=== PATIENT | female | born 1965 | race Caucasian/White ===

== ENCOUNTER → 2024-06-05 08:34 | Outpatient (REF) | payer BC, SELFPAY | LOC: RAD 08:34 | PROVIDERS: ATTENDING PHYSICIAN Physician Assistant Medical | DX: N95.0 Postmenopausal bleeding (principal) | CPT/HCPCS: 76830 ==

== ENCOUNTER 2024-08-05 06:02 | Day surgery (SDC) | payer BC, SELFPAY ==
--- NOTE | 2024-08-02 10:24 | W.CON.GYNONC ---
Chief Complaint
-
endometrial cancer
History of Present Illness
59�year�old G0 woman referred to me by Dr. Jyoti Allen. Patient has not seen a yarn twister for almost 2 to 3 years. She
receives her gynecologic care through her primary care provider, Kyra Gannon. patient has had some vaginal bleeding that
occurred once in March and minimal since then. Ultrasound of pelvis was done at [facility] June 05, 2024, uterus
was 11 x 6.5 x 6.2 cm, multiple fibroids were present measuring 3.2, 4.9 that do not seem significantly changed compared to prior
study. Endometrial thickness was 5 mm. Both ovaries were unremarkable. Patient had a Pap smear April 17, 2025 which was
negative for malignancy and high risk HPV was also negative. Patient apparently had a cervical polyp which was biopsied, polyp
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 Moderately differentiated. Neoplastic cells
were positive for vimentin negative for CEA. P53 expression was wild�type.
Past medical history significant for hypertension, hypothyroidism, depression anxiety and obesity
Past surgical history significant for for none
Medications include levothyroxine, Prozac, lisinopril
Social history denies tobacco drug or marijuana use, drinks alcohol socially, patient is not , she works at [employer]
as a automotive service cashier
Family history significant for only maternal grandmother with lung cancer
Screening studies include mammogram up�to�date, she is supposed to schedule a colonoscopy which she is never done
Medical History
Allergies
Allergies reflect when allergies were last updated in [facility].
No Known Allergies Allergy (Verified 07/29/24 13:37)
Physical Exam
Physical Exam
Pelvic Examination:
External normal labia, urethra, anus.
Vagina: Normal mucosa.
Cervix: Speculum examination was performed, it is very difficult to see or palpate the cervix but eventually I was able to see it with
Graves speculum, there is no gross lesion present cervical os is open
Uterus: normal size. I am unable to appreciate the fundus due to patient's body habitus
Adnexa: No pelvic mass. Unable to appreciate ovary
RVE: no masses or nodularity
General: Well developed, well nourished patient. In no acute distress.
Neck: No thyromegaly. No cervical lymphadenopathy.
Lungs: Clear to auscultation. Good air movement bilaterally.
Cardiac: Regular rate. Regular rhythm. No murmurs appreciated.
Right Breast: No masses or dimpling. No nipple discharge.
Left Breast: No masses or dimpling. No nipple discharge.
Abdomen: Abdomen is soft. Non�tender to palpation. Non�distended.
Extremities: No edema.
Hematologic/Lymphatic: No palpable lymphadenopathy.
Musculoskeletal: Normal range of motion. Strength and Tone are normal.
Skin:Non�jaundiced. No petechia. No purpura.
Neurologic: Speech is fluent. Normal gait and station. Cranial nerves intact.
Results
-
[facility]
[address] [place] [address]
[phone]
Patient Name: SIMBA KENNEDY
: 1965
Unit Number: [id number]
Age/Sex: 58/F
Patient
Location: [facility]
Order Provider: Kyra Panda
Exam Service Date: 06/05/24

Diagnostic Imaging Report
SignedOrder #:[id number]
Exams: US Pelvis Transvaginal Only
PROCEDURE: US Pelvis Transvaginal Only
INDICATION: 58-year-old with fibroids.
TECHNIQUE: Transvaginal pelvic ultrasound was performed. [employer] henriquez scale and color Doppler images saved and recorded.
COMPARISON: Pelvic ultrasound from 10/23/2017
FINDINGS:
Uterus: Size measures 11.0 x 6.5 x 6.2 cm. Again seen are couple of anterior body intramural fibroids measuring 3.2 x 3.3 x 3.2 cm and 4.9 x 6.1 x 5.2 cm. Both do not appear significantly changed compared to the prior study.
Endometrium: Thickness measures 5 mm. No endometrial fluid, soft tissue lesions, or abnormal vascularity.
Ovaries: Both ovaries are unremarkable. Right ovary measures 3.5 x 2.1 x 3.9 cm. Left ovary measures 3.0 x 1.6 x 3.0 cm.
No pelvic free fluid.
IMPRESSION:
Redemonstration of fibroid uterus containing a couple of anterior body intramural fibroids, both of which are not significantly changed compared to the pelvic ultrasound from 2018.
Endometrial thickness measures 5 mm.
Both ovaries are unremarkable. No adnexal masses or pelvic free fluid.
Electronically signed by Richi Mohamud MD, 06/05/2024 11:26 AM
Comp. Metabolic Panel (14)�-FinalOrdered by:�Sonia VENCES
Glucose 89 mg/dL 70-99 [facility]
BUN 23 mg/dL 8-27 [facility]
Creat 0.89 mg/dL 0.57-1.00 [facility]
eGFR 74 mL/min/1.73 >59 [facility]
BUN Creat Ratio 26 12-28 [facility]
Sodium 139 mmol/L 134-144 [facility]
Potassium 4.8 mmol/L 3.5-5.2 [facility]
Chloride 102 mmol/L 96-106 [facility]
CO2 20 mmol/L 20-29 [facility]
Calcium 10.1 mg/dL 8.7-10.3 [facility]
Total Protein 6.8 g/dL 6.0-8.5 [facility]
Albumin 4.6 g/dL 3.8-4.9 [facility]
Globulin 2.2 g/dL 1.5-4.5 [facility]
Total Bili 0.7 mg/dL 0.0-1.2 [facility]
Alk Phos 90 IU/L 44-121 [facility]
AST 19 IU/L 0-40 [facility]
ALT 20 IU/L 0-32 [facility]
Urinalysis, Complete�-FinalOrdered by:�Sonia VENCES
Sp Pepin 1.020 1.005-1.030 [facility]
ph 5.5 5.0-7.5 [facility]
Color Yellow Yellow [facility]
Appearance Clear Clear [facility]
WBC Esterase Negative Negative [facility]
Protein [Presence] Negative Negative/Trace [facility]
Glucose (urine) Negative Negative [facility]
Ketone Negative Negative [facility]
Blood Negative Negative [facility]
Bilirubin (UA) Negative Negative [facility]
Urobil 0.2Low mg/dL 0.2-1.0 [facility]
Nitrite Negative Negative [facility]
Microscopic Examination MICRON [facility]
Microscopic�follows�if�indicated.
Microscopic Examination See below: [facility]
Microscopic�was�indicated�and�was�performed.
Microscopic Examination�-FinalOrdered by:�Sonia VENCES
WBC (Urine) HPF 0-5 /hpf 0 - 5 [facility]
RBC (Urine) HPF None seen /hpf 0 - 2 [facility]
Epithelial Cells (non renal) 0-10 /hpf 0 - 10 [facility]
Casts None seen /lpf None seen [facility]
Bacteria None seen None seen/Few [facility]
Iron and TIBC�-FinalOrdered by:�Sonia VENCES
Iron Bind.Cap.(TIBC) 361 ug/dL 250-450 [facility]
UIBC 270 ug/dL 131-425 [facility]
IRON 91 ug/dL 27-159 [facility]
Iron Sat Percent 25 % 15-55 [facility]
Vitamin B12 and Folate�-FinalOrdered by:�Sonia VENCES
B12 508 pg/mL 232-1245 [facility]
Folate (Folic Acid), Serum 8.4 ng/mL >3.0 [facility]
A�serum�folate�concentration�of�less�than�3.1�ng/mL�is
considered�to�represent�clinical�deficiency.
Prothrombin Time (PT)�-FinalOrdered by:�Sonia VENCES
INR 1.0 0.9-1.2 [facility]
���������������Reference�interval�is�for�non-anticoagulated�patients.
��������������������������������������������������������������������.
���������������Suggested�INR�therapeutic�range�for�Vitamin�K
���������������antagonist�therapy:
������������������Standard�Dose�(moderate�intensity
���������������������������������therapeutic�range):�������2.0�-�3.0
������������������Higher�intensity�therapeutic�range�������2.5�-�3.5
ProTime 10.9 sec 9.1-12.0 [facility]
TSH reflex to T4F�-FinalOrdered by:�Sonia VENCES
TSH 2.810 uIU/mL 0.450-4.500 [facility]
Cancer Antigen (CA) 125�-FinalOrdered by:�Sonia VENCES
CA125 13.2 U/mL 0.0-38.1 [facility]�Electrochemiluminescence�Immunoassay�(ECLIA)
���������������������������������������������������������������������.
Values�obtained�with�different�assay�methods�or�kits�cannot�be
used�interchangeably.��Results�cannot�be�interpreted�as�absolute
evidence�of�the�presence�or�absence�of�malignant�disease.
PTT, Activated�-FinalOrdered by:�Sonia VENCES
aPTT 28 sec 24-33 [facility]
This�test�has�not�been�validated�for�monitoring�unfractionated�heparin
therapy.�aPTT-based�therapeutic�ranges�for�unfractionated�heparin
therapy�have�not�been�established.�For�general�guidelines�on
Heparin�monitoring,�refer�to�the�[facility]�Directory�of�Services.
FSH�-FinalOrdered by:�Sonia VENCES
FSH 55.4 mIU/mL 25.8-134.8 [facility]
������������������������������������Adult�Female�������������Range
�������������������������������������Follicular�phase������3.5�-��12.5
�������������������������������������Ovulation�phase�������4.7�-��21.5
�������������������������������������Luteal�phase����������1.7�-���7.7
�������������������������������������Postmenopausal�������25.8�-�134.8
LDH�-FinalOrdered by:�Sonia VENCES
LDH 195 IU/L 119-226 [facility]
Urine Culture, Routine�-FinalOrdered by:�Sonia VENCES
Urine Culture, Routine Final report [facility]
Result�-FinalOrdered by:�Sonia VENCES
Result 1 LESS [facility]
Culture�shows�less�than�10,000�colony�forming�units�of�bacteria�per
milliliter�of�urine.�This�colony�count�is�not�generally�considered
to�be�clinically�significant.
Ferritin�-FinalOrdered by:�Sonia VENCES
Ferritin 143 ng/mL 15-150 [facility]
Performing Location:�01�=�[address]�[id number]��Phone:�[phone]
�������Dir:�JORDAN French,��
Impression / Plan
-
59�year�old morbidly obese woman who is presenting with postmenopausal bleeding as well as a endocervical polyp that is grade 2
endometrioid adenocarcinoma.
I informed the patient and her brother and sister�in�law about cervix and endometrial cancer, she has typical risk factor for
endometrial cancer and has a negative Pap smear although the Pap smear fails to contain endocervical cells. Presentation with a
endocervical polyp for endometrial cancer is somewhat unusual, her endometrial lining is not particularly thickened on the recent
ultrasound and the possibility of an endometrioid adenocarcinoma of the cervix needs to be excluded.
I am recommending initially an exam under anesthesia with dilation and curettage performed in a fractional fashion so that we could
have ECC and EMC for evaluation.
Labs including CMP CBC coagulation studies TSH FSH will be done.
Baseline CT chest abdomen and pelvis will be done to assess for metastatic disease
This patient has risk factors including obesity menopausal status, heavy menstrual cycles during her 49, and hypertension for
development of endometrial cancer and I explained this to the patient extensively. I discussed with her that she needs to examine
and evaluate her lifestyle choices and hopefully make an attempt at long�term weight loss as she may be at significant risk for other
diseases such as breast cancer cardiovascular disease and stroke.
[2024-08-05 06:19] VITALS: BMI 54.9
[2024-08-05 06:21] VITALS: BMI 54.9
[2024-08-05 06:25] VITALS: BP 134/79
[2024-08-05] MEDS: TYLENOL 1000 MG PO (06:31)
[2024-08-05] MEDS: CELEBREX 200 MG PO (06:31)
[2024-08-05] MEDS: HEPARIN 5000 UNITS SC (06:32)
[2024-08-05] MEDS: NEURONTIN 300 MG PO (06:32)
[2024-08-05] MEDS: NORMOSOL-R/PLASMALYTE-A 1000 IV (06:47)
[2024-08-05 07:55] VITALS: BP 134/79
[2024-08-05 07:57] VITALS: BP 127/68
[2024-08-05 08:00] VITALS: BP 124/66
--- NOTE | 2024-08-05 08:07 | OR.RPT ---
Operative Report
Operative Report
Date of procedure: 08/05/2024
Primary Surgeon: Carroll Soto MD
Pre-op Diagnosis: Postmenopausal bleeding, history of cervix polyp removed indicating adenocarcinoma
Post-op Diagnosis: Same pending final pathology
Procedure Performed: Exam under anesthesia, fractional dilation and curettage
Anesthesia Type: General, LMA intubation
Specimen / Cultures: ECC, EMC
Estimated Blood Loss: Less than 10 cc
Complications: None
Operative Findings: Exam under anesthesia reveals external genitalia including anus urethra and vulva and vagina to be within normal limits. She is morbidly obese with the cervix high up in the pelvis, the cervix grossly is without any evidence of
abnormalities. To the best of my ability examination reveals a 10-week size uterus, bilateral parametria are normal and I am unable to appreciate any pelvic masses
Procedure in detail: This patient was brought to the operating room placed in supine position, general anesthesia was administered and she was intubated with LMA. She was placed in lithotomy position using yellowfin stirrups, we prepped and draped
after timeout procedure was completed specifically in perineum upper thighs and lower abdomen. She received appropriate antibiotics with 3 g of Ancef. I used Nye retractors to visualize the cervix, anterior lip of the cervix was grasped with
single-tooth tenaculum. 10 cc 1% lidocaine was injected divided equally at 5 and 7:00 paracervical location. I dilated the cervix and note that the uterus sounded to 10 cm. Sharp curettage of the endocervix was obtained and submitted as ECC the
cervix was dilated up to 25 Montserratian dilator, sharp curettage of the endometrial cavity was also obtained and minimal amount of tissue was obtained. This is consistent with her ultrasound findings. The endometrium was only 5 mm. At the completion
of the procedure I removed all instruments, there was no bleeding. She was awakened and extubated and returned back to recovery room stable awake and extubated condition. Counts of laps instruments and needle was correct x 2. I was present and
scrubbed for entire procedure as dictated above
Disposition: To PACU stable awake and extubated.
[2024-08-05 08:15] VITALS: BP 119/66
[2024-08-05 08:45] VITALS: BP 136/79
== END 2024-08-05 09:05 | disposition home or self-care (01) ==
LOC: SDS 06:02
PROVIDERS: ATTENDING PHYSICIAN Obstetrics & Gynecology Gynecologic Oncology; FAMILY PHYSICIAN Physician Assistant Medical
DX: N87.9 Dysplasia of cervix uteri, unspecified (principal); N95.0 Postmenopausal bleeding
CPT/HCPCS: 58120; 88305; 36415; 86850; 86900; 86901; 93005

== ENCOUNTER → 2024-08-18 07:32 | Outpatient (REF) | payer BC, SELFPAY | LOC: RAD 07:32 | PROVIDERS: ATTENDING PHYSICIAN Obstetrics & Gynecology Gynecologic Oncology; FAMILY PHYSICIAN Physician Assistant Medical | DX: C54.1 Malignant neoplasm of endometrium (principal); E66.01 Morbid (severe) obesity due to excess calories; I10 Essential (primary) hypertension | CPT/HCPCS: 71260; 74177; Q9967 ==

== ENCOUNTER 2024-08-26 06:08 | Day surgery (SDC) | payer BC, SELFPAY ==
--- NOTE | 2024-08-25 16:40 | W.CON.GYNONC ---
Addendum entered and electronically signed by Carroll Soto MD 08/26/24 09:51:
Date for this consultation is August 26, 2024 and this document serves as the preoperative H&P.
Original Note:
Chief Complaint
-
Uterine Ca
History of Present Illness
59�year�old�G0�woman�referred�to�me�by�Dr.�Jyoti�Alejandro.�Patient�has�not�seen�a�railroad car repairman�for�almost�2�to�3�years.�She receives�her�gynecologic�care�through�her�primary�care�provider,�Kyra�[facility].�patient�has�had�some�vaginal�bleeding�that
occurred�once�in�[place]�and�minimal�since�then.�Ultrasound�of�pelvis�was�done�at[facility]�March�2,�uterus
was�11�x�6.5�x�6.2�cm,�multiple�fibroids�were�present�measuring�3.2,�4.9�that�do�not�seem�significantly�changed�compared�to�prior
study.�Endometrial�thickness�was�5�mm.�Both�ovaries�were�unremarkable.�Patient�had�a�Pap�smear�February��which�was negative�for�malignancy�and�high�risk�HPV�was�also�negative.�Patient�apparently�had�a�cervical�polyp�which�was�biopsied,�polyp
showed�extensive�involvement�by�adenocarcinoma�consistent�with�endometrial�origin.�Moderately�differentiated.�
Neoplastic�cells were�positive�for�vimentin�negative�for�CEA.�P53�expression�was�wild�type.�
She underwent D&C, by which showed
A. Endocervical curettings �
? Focal endocervical squamous metaplasia.
B. Endometrial curettings �
? Inactive endometrium with focal tubal metaplasia.
? No tumor identified
Cervix polyp was re reviewed here at and consulted with kenan, indicating
Endometrioid adenocarcinoma with squamous differentiation and area suggestive of
potential sarcomatous differentiation, see note.
Note:
Histologic grading of this carcinoma is difficult given its variable morphology. Grading is best
deferred to a resection specimen.
Immunohistochemical stains demonstrate that the tumor cells are positive for vimentin and
negative for p63 and CEA-M. P16 show patchy positivity, and p53 shows a wild-type staining
pattern.
Past�medical�history�significant�for�hypertension,�hypothyroidism,�depression�anxiety�and�obesity
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
Family�history�significant�for�only�maternal�grandmother�with�lung�cancer
Screening�studies�include�mammogram�up�to�date,�she�is�supposed�to�schedule�a�colonoscopy�which�she�is�never�done
Medical History
Allergies
Allergies reflect when allergies were last updated in [employer].
No Known Allergies Allergy (Verified 08/20/24 16:19)
Physical Exam
Physical Exam
Pelvic�Examination: External�normal�labia,�urethra,�anus.� Vagina:�Normal�mucosa.� Cervix:�Speculum�examination�was�performed,�it�is�very�difficult�to�see�or�palpate�the�cervix�but�eventually�I�was�able�to�see�it�with
Graves�speculum,�there�is�no�gross�lesion�present�cervical�os�is�open Uterus:�normal�size.�I�am�unable�to�appreciate�the�fundus�due�to�patient's�body�habitus Adnexa:�No�pelvic�mass.�Unable�to�appreciate�ovary RVE:�no�masses�or�nodularity
General:�Well�developed,�well�nourished�patient.�In�no�acute�distress. Neck:�No�thyromegaly.�No�cervical�lymphadenopathy. Lungs:�Clear�to�auscultation.�Good�air�movement�bilaterally. Cardiac:�Regular�rate.�Regular�rhythm.�No�murmurs�appreciated.
Right�Breast:�No�masses�or�dimpling.�No�nipple�discharge. Left�Breast:�No�masses�or�dimpling.�No�nipple�discharge. Abdomen:�Abdomen�is�soft.�Non�tender�to�palpation.�Non�distended. Extremities:�No�edema.
Hematologic/Lymphatic:�No�palpable�lymphadenopathy. Musculoskeletal:�Normal�range�of�motion.�Strength�and�Tone�are�normal. Skin:Non�jaundiced.�No�petechia.�No�purpura. Neurologic:�Speech�is�fluent.�Normal�gait�and�station.�Cranial�nerves�intact.
Results
-
Comp. Metabolic Panel (14)�-FinalOrdered by:�Sonia SOTO
Glucose 89 mg/dL 70-99 [facility]
BUN 23 mg/dL 8-27 [facility]
Creat 0.89 mg/dL 0.57-1.00 [facility]
eGFR 74 mL/min/1.73 >59 [facility]
BUN Creat Ratio 26 12-28 [facility]
Sodium 139 mmol/L 134-144 [facility]
Potassium 4.8 mmol/L 3.5-5.2 [facility]
Chloride 102 mmol/L 96-106 [facility]
CO2 20 mmol/L 20-29 [facility]
Calcium 10.1 mg/dL 8.7-10.3 [facility]
Total Protein 6.8 g/dL 6.0-8.5 [facility]
Albumin 4.6 g/dL 3.8-4.9 [facility]
Globulin 2.2 g/dL 1.5-4.5 [facility]
Total Bili 0.7 mg/dL 0.0-1.2 [facility]
Alk Phos 90 IU/L 44-121 [facility]
AST 19 IU/L 0-40 [facility]
ALT 20 IU/L 0-32 [facility]
Urinalysis, Complete�-FinalOrdered by:�Sonia SOTO
Sp Novelty 1.020 1.005-1.030 [facility]
ph 5.5 5.0-7.5 [facility]
Color Yellow Yellow [facility]
Appearance Clear Clear [facility]
WBC Esterase Negative Negative [facility]
Protein [Presence] Negative Negative/Trace [facility]
Glucose (urine) Negative Negative [facility]
Ketone Negative Negative [facility]
Blood Negative Negative [facility]
Bilirubin (UA) Negative Negative [facility]
Urobil 0.2Low mg/dL 0.2-1.0 [facility]
Nitrite Negative Negative [facility]
Microscopic Examination MICRON [facility]
Microscopic�follows�if�indicated.
Microscopic Examination See below: [facility]
Microscopic�was�indicated�and�was�performed.
Microscopic Examination�-FinalOrdered by:�Sonia SOTO
WBC (Urine) HPF 0-5 /hpf 0 - 5 [facility]
RBC (Urine) HPF None seen /hpf 0 - 2 [facility]
Epithelial Cells (non renal) 0-10 /hpf 0 - 10 [facility]
Casts None seen /lpf None seen [facility]
Bacteria None seen None seen/Few [facility]
Iron and TIBC�-FinalOrdered by:�Sonia SOTO
Iron Bind.Cap.(TIBC) 361 ug/dL 250-450 [facility]
UIBC 270 ug/dL 131-425 [facility]
IRON 91 ug/dL 27-159 [facility]
Iron Sat Percent 25 % 15-55 [facility]
Vitamin B12 and Folate�-FinalOrdered by:�Sonia SOTO
B12 508 pg/mL 232-1245 [facility]
Folate (Folic Acid), Serum 8.4 ng/mL >3.0 [facility]
A�serum�folate�concentration�of�less�than�3.1�ng/mL�is
considered�to�represent�clinical�deficiency.
Prothrombin Time (PT)�-FinalOrdered by:�Sonia SOTO
INR 1.0 0.9-1.2 [facility]
���������������Reference�interval�is�for�non-anticoagulated�patients.
��������������������������������������������������������������������.
���������������Suggested�INR�therapeutic�range�for�Vitamin�K
���������������antagonist�therapy:
������������������Standard�Dose�(moderate�intensity
���������������������������������therapeutic�range):�������2.0�-�3.0
������������������Higher�intensity�therapeutic�range�������2.5�-�3.5
ProTime 10.9 sec 9.1-12.0 [facility]
TSH reflex to T4F�-FinalOrdered by:�Sonia SOTO
TSH 2.810 uIU/mL 0.450-4.500 [facility]
Cancer Antigen (CA) 125�-FinalOrdered by:�Sonia SOTO
CA125 13.2 U/mL 0.0-38.1 [facility]�Electrochemiluminescence�Immunoassay�(ECLIA)
���������������������������������������������������������������������.
Values�obtained�with�different�assay�methods�or�kits�cannot�be
used�interchangeably.��Results�cannot�be�interpreted�as�absolute
evidence�of�the�presence�or�absence�of�malignant�disease.
PTT, Activated�-FinalOrdered by:�Sonia SOTO
aPTT 28 sec 24-33 [facility]
This�test�has�not�been�validated�for�monitoring�unfractionated�heparin
therapy.�aPTT-based�therapeutic�ranges�for�unfractionated�heparin
therapy�have�not�been�established.�For�general�guidelines�on
Heparin�monitoring,�refer�to�the�[facility]�Directory�of�Services.
FSH�-FinalOrdered by:�Sonia SOTO
FSH 55.4 mIU/mL 25.8-134.8 [facility]
������������������������������������Adult�Female�������������Range
�������������������������������������Follicular�phase������3.5�-��12.5
�������������������������������������Ovulation�phase�������4.7�-��21.5
�������������������������������������Luteal�phase����������1.7�-���7.7
�������������������������������������Postmenopausal�������25.8�-�134.8
LDH�-FinalOrdered by:�Sonia SOTO
LDH 195 IU/L 119-226 [facility]
Urine Culture, Routine�-FinalOrdered by:�Sonia SOTO
Urine Culture, Routine Final report [facility]
Result�-FinalOrdered by:�Sonia SOTO
Result 1 LESS [facility]
Culture�shows�less�than�10,000�colony�forming�units�of�bacteria�per
milliliter�of�urine.�This�colony�count�is�not�generally�considered
to�be�clinically�significant.
Ferritin�-FinalOrdered by:�Sonia SOTO
Ferritin 143 ng/mL 15-150 [facility]
[address] [place] [address]
[phone]
Patient Name: SIMBA KENNEDY
: 1965
Unit Number: [id number]
Age/Sex: 59/F
Patient
Location: [facility]
Order Provider: Carroll Soto MD
Exam Service Date: 08/18/24

Diagnostic Imaging Report
SignedOrder #:[id number]
Exams: CT Chest/abd/pel W Iv Cont
Contrast-enhanced CT of the chest, abdomen, and pelvis dated 08/18/2024 7:45 AM.
Indication: Malignant neoplasm of endometrium.
Comparison: Pelvic ultrasound 06/05/2024
Technique: After the injection of intravenous nonionic iodinated contrast, axial CT of the chest, abdomen, and pelvis was performed from the lung apices to the inferior osseous pelvis. 2-D reformats were obtained. Automatic exposure control
radiation dose reduction technology was utilized.
Findings:
Chest: The central airways are patent. There are no suspicious pulmonary nodules. No areas of airspace disease. There is trace atelectasis within the medial left lower lobe. No pleural effusion or pneumothorax.
No mediastinal, hilar or axillary lymphadenopathy.
The heart is nonenlarged. No evidence of thoracic aortic aneurysm.
No suspicious osseous lesions. Mild degenerative changes of the thoracic spine.
Abdomen/pelvis:
LIVER: Within normal limits.
GALLBLADDER: Within normal limits.
BILE DUCTS: Within normal limits.
PANCREAS: Within normal limits.
SPLEEN: Within normal limits.
ADRENALS: No discrete nodule.
KIDNEYS/URETERS: No hydronephrosis. No suspicious renal lesion.
BOWEL: No obstruction or wall thickening. Colonic diverticulosis.
PERITONEUM: No ascites or free air.
REPRODUCTIVE: Globular appearance of the uterus.
BLADDER: Nondistended. VESSELS: Non-aneurysmal abdominal aorta. There is mild atherosclerotic calcifications of the abdominal aorta.
RETROPERITONEUM: No retroperitoneal or pelvic lymphadenopathy.
No suspicious osseous lesions. Degenerative changes of the lumbar spine with moderate intervertebral disc space narrowing of L3-L4, L4-L5 and L5-S1.
Small fat-containing umbilical hernia. Right inguinal nodes measuring up to 1.1 cm (series 301 image 93)
IMPRESSION:
1. No evidence of metastatic disease identified in the chest, abdomen or pelvis.
2. Lobular appearance of the uterus which is likely in part secondary to uterine fibroids. The known endometrial carcinoma is not well evaluated.
3. Chronic diverticulosis.
Electronically signed by Abdulkadir Aguirre MD, 08/18/2024 4:53 PM
[employer] Dose Report: Up-to-date CT equipment and radiation dose reduction techniques were employed. CTDIvol: 16.3 - 31.6 mGy. DLP: 2013 mGy-cm.
Dictated By: Abdulkadir Aguirre MD.
Dictated Date & Time: 08/18/24 1627
Signed/Co-Signer By: Abdulkadir Aguirre MD /
Signed/Co-Signer Date & Time: 08/18/24 1653 /
Impression / Plan
-
59�year�old�morbidly�obese�woman�who�is�presenting�with�postmenopausal�bleeding�as�well�as�a�endocervical�polyp�that�is�grade�2 endometrioid�adenocarcinoma.
�surgery�will�be�robotic�assisted�total�laparoscopic hysterectomy,�bilateral�salpingo�oophorectomy,�staging�including�sentinel�lymph�nodes�with�the�possible�need�for�mini�laparotomy for�extraction�of�specimen.�
Risk�of�surgery�including�infection�bleeding�injury�to�adjacent�organs�DVT�pulmonary�embolism�and cardiovascular�complications�were�discussed�and�reviewed.�
Patient�understands�that�following�surgery�she�will�be�visiting�with�me�to�go�over�pathology�report�and�assess�risk�factors�for
systemic�and�local�recurrence�and�may�be�advised�to�undergo�adjuvant�treatment�including�observation,�surveillance,�radiation therapy�chemotherapy�etc.
[2024-08-26] VITALS (14 sets, daily range): BP systolic 109–146; BP diastolic 51–77; BMI 54.9
[2024-08-26] MEDS: CELEBREX 200 MG PO (06:38)
[2024-08-26] MEDS: HEPARIN 5000 UNITS SC (06:38)
[2024-08-26] MEDS: NEURONTIN 300 MG PO (06:38)
[2024-08-26] MEDS: TYLENOL 1000 MG PO (06:38)
[2024-08-26] MEDS: NORMOSOL-R/PLASMALYTE-A 1000 IV (06:51)
[2024-08-26 07:16] LABS: Hematocrit 42.8 % (37.0-47.0); Hemoglobin 14.5 g/dL (12.0-16.0); Mean Corp Hgb Conc. 33.9 g/dL (33.0-37.0); Mean Corpuscular Volume 88.4 fL (81.0-99.0); Mean Platelet Volume 10.8 fL (7.4-10.4); Platelet Count 246 10^3/uL (130-400); Red Blood Cell Count 4.84 10^6/uL (4.20-5.40); Red Cell Dist. Width 12.6 % (11.5-14.5); White Blood Cell Count 7.2 10^3/uL (4.8-10.8)
--- NOTE | 2024-08-26 09:41 | OR.RPT ---
Operative Report
Operative Report
Date of procedure: August 26, 2024
Primary Surgeon: Carroll Soto MD
Assisting Surgeon: Miguelina Degroot PA-C, Mg DEVI
Pre-op Diagnosis: Endometrial cancer
Post-op Diagnosis: Same
Procedure Performed:
Robotic assisted total laparoscopic hysterectomy bilateral salpingo-oophorectomy with pelvic washings 99925
Injection of cervix, bilateral, for mapping and identification of bilateral sentinel lymph nodes 3890 0�5 0
Robotic assisted bilateral pelvic sentinel lymphadenectomy [id number]
Mini laparotomy for extraction of specimen
Anesthesia Type: General Endotracheal intubation, transversus abdominis plane block
Specimen / Cultures: Uterus and cervix with bilateral tubes and ovaries, pelvic washings, right and left external iliac sentinel lymph nodes
Estimated Blood Loss: 50 cc
Complications: None
Operative Findings: Intra-abdominal survey reveals excessive amount of adipose tissue hanging from various surfaces abdominal wall. Upper abdomen including liver stomach bilateral diaphragms are normal. Visualized portions of small bowel and colon
are normal. Uterus is enlarged, bilateral tubes and ovaries are round normal in appearance, there is no peritoneal implants or ascites
Procedure in detail: This patient was taken to the operating room for definitive management of endometrial cancer. Please note that she had initially presented with postmenopausal bleeding endocervical polyp was removed which revealed grade 2
endometrioid adenocarcinoma. Subsequently the patient underwent a D&C which did not reveal any evidence of residual invasive cancer in the cervix or endometrium. Prior Pap smear was high risk HPV negative. CT scan chest abdomen and pelvis did not
reveal any evidence of metastatic disease the patient is brought to the operating room for definitive management. Upon arrival to the operating room she was placed in supine position general anesthesia was administered she was intubated without any
difficulty she was placed in lithotomy position using bariatric yellowfin stirrups. Arms were wrapped with foam and placed along the patient's side to protect extremities. Neck and shoulders were supported. OG tube was placed and eyes were
covered. Timeout procedure was carried out she received 3 g of Ancef and 500 mg of Flagyl. Herrera catheter was placed under sterile conditions. Vagina perineum and upper abdomen was prepped and draped. Anterior lip of the cervix was grasped with
single-tooth tenaculum endocervical canal was dilated. The cervix was injected with ICG dye total of 4 cc split on right and left sides at 3 and 9:00 positions with ICG dye for mapping and identification of sentinel lymph nodes. Next I went ahead
and placed the uterine manipulator with a 3.0 cm ARABELLA ring around the cervix and insufflated vaginal occluder balloon. Attention was turned abdominally, Veress needle was then inserted just below left costal margin and CO2 gas was introduced with
pneumoperitoneum at 15 mmHg. 8 mm X Xi robotic ports were inserted 25 cm cephalad to symphysis pubis and under direct visualization right and left upper quadrant and right and left lateral abdomen ports were placed. Tap block was performed
injection combination of ropivacaine, Decadron 2 fingerbreadths below lateral aspect of the costal margins under direct visualization as well as right and left mid abdomen. Next I placed the patient in 28 degree Trendelenburg and docked the robotic
system. We went ahead and collected washings from the pelvis, right and left round ligaments were sealed and divided anterior and posterior leaves of the broad ligament were dissected open. Paravesical and pararectal spaces were developed and the
course of the ureters were identified. Both IP ligaments were sealed 3 times and divided tubes and ovaries were left attached to the uterus. Firefly mode was used to track lymphatic channel from the cervix and on the left side just below the
bifurcation of the common iliac vessels [place] lymph node was identified and removed and submitted to pathology, on the right side there is sentinel lymph node appeared to be anterior to the external iliac artery and this was excised and submitted
to pathology good hemostasis was obtained. Uterine arteries were skeletonized bilaterally, bladder flap was sharply developed and advanced below the cervicovaginal junction. Uterine arteries and veins were sealed and divided. Uterosacral
ligaments were sealed and divided circumferential incision was made over the ARABELLA ring until the specimen was completely detached. The size of the uterus was too large to be delivered through the vagina. The specimen was detached from the uterine
manipulator and was placed in an endoscopic bag. The vaginal cuff was closed with 0 Vicryl suture ligature in a [id number] fashion incorporating uterosacral ligaments at both apices. Next the vagina was closed with V-Loc suture starting from
right to the left and then back to the right side. We irrigated the pelvis and examined all pedicles that were hemostatic. Following this the patient was placed back in supine position and the robotic system was undocked. This supraumbilical
epigastric incision was extended vertically to about 5 cm in subcutaneous fat and fascia was opened. The specimen containing the uterus and cervix was removed through this incision and then we closed the incision with STRATAFIX 0 PDS symmetric
suture starting from top to bottom and a second layer going back up. Subcutaneous tissue was closed with 2-0 Monocryl. 4-0 Monocryl was used on all port sites to close the skin incisions. We injected 20 cc quarter percent Marcaine in the mid
epigastric incision. The Herrera catheter was removed vagina was inspected and there was no bleeding. Patient was awakened extubated and returned back to recovery room stable awake and extubated condition. Counts of laps instruments and needle was
correct x 2. I was present and scrubbed for entire procedure as dictated above
Disposition: To PACU stable awake and extubated
[2024-08-26] MEDS: ZOFRAN 4 MG IV (10:18)
[2024-08-26] MEDS: DILAUDID 0.25 MG IV (10:44)
[2024-08-26] MEDS: TYLENOL 650 MG PO (14:08)
== END 2024-08-26 14:30 | disposition home or self-care (01) ==
LOC: SDS 06:08
PROVIDERS: ATTENDING PHYSICIAN Obstetrics & Gynecology Gynecologic Oncology
DX: C54.1 Malignant neoplasm of endometrium (principal); D25.9 Leiomyoma of uterus, unspecified
CPT/HCPCS: 38571; 58571; 38900; 88307; 88309; 85027; 88112; 88341; 88342

== ENCOUNTER 2025-02-26 06:29 | Outpatient (RCR) | payer BC, SELFPAY | END 2025-02-26 23:59 | disposition home or self-care (01) | LOC: RPT 06:29 | PROVIDERS: ATTENDING PHYSICIAN Urology; FAMILY PHYSICIAN Physician Assistant Medical | DX: N32.81 Overactive bladder (principal); N39.3 Stress incontinence (female) (male); N95.8 Other specified menopausal and perimenopausal disorders; Z73.6 Limitation of activities due to disability; M62.81 Muscle weakness (generalized) | CPT/HCPCS: 97161; 97530 ==